=== PATIENT | female | born 1985 | race American Indian/Alaskan Native ===

== ENCOUNTER 2018-05-22 11:58 | Emergency (ER) | payer MEDICAID ==
--- NOTE | 2018-05-22 12:13 | Emergency Department Report ---
Chief Complaint: Vaginal Bleeding Stated Complaint: 6WKS PREG/BLEEDING Time Seen by Provider: 05/22/18 12:09 - HPI History of Present Illness: pt is currently 6 weeks pt is HIV positive is having vaginal spotting for 2 days - Exam Vital Signs: Vital Signs 05/22/18 12:07 Temperature 98 F Pulse Rate 87 Respiratory 18 Rate Blood Pressure 109/73 O2 Sat by Pulse 100 Oximetry MSE screening note: Focused history and physical exam performed. Due to findings the following was ordered: labs, UA, US ED Disposition for MSE Condition: Stable
[2018-05-22 12:24] LABS: Hematocrit 34.4 % (30.3-42.9); Hemoglobin 11.2 gm/dl (10.1-14.3); Mean Corpuscular HGB Conc 33 % (30-34); Mean Corpuscular Volume 83 fl (79-97); Platelet Count 185 K/mm3 (140-440); Red Blood Count 4.15 M/mm3 (3.65-5.03); Red Cell Distribution Width 13.4 % (13.2-15.2)
[2018-05-22 13:03] LABS: Bacteria,Urine 1+ /HPF (Negative); Bilirubin,Urine NEG (Negative); Blood,Urine LG (Negative); Color,Urine Yellow (Yellow); Mucus,Urine FEW /HPF; Protein,Urine <15 mg/dL mg/dL (Negative)
--- NOTE | 2018-05-22 13:10 | Emergency Department Report ---
ED HPI - General Chief complaint: Vaginal Bleeding Stated complaint: 6WKS PREG/BLEEDING Time Seen by Provider: 05/22/18 12:09 Source: patient Mode of arrival: Ambulatory Limitations: No Limitations - History of Present Illness Initial comments: This is a 32-year-old female nontoxic, well nourished in appearance, no acute signs of distress presents to the ED with c/o of vaginal bleeding x2 days. Patient stated she is currently about 6-7 weeks . Patient stated that she seen any MANAGER TRADE last week for vaginal bleeding and had a ultrasound with no heartbeat with hCG quantitative test of 3500. She stated that vaginal bleeding has not stopped. Patient denies any vaginal discharge or foul odor. Patient denies any nausea, vomiting, chest pain, shortness of breathe, fever, chills, headache, stiff neck, numbness, tingling. Patient denies any urinary symptoms. Patient denies any pelvic or pleural pain. Patient denies any allergies or PMH. MD Complaint: vaginal bleeding -: days(s) (2) Radiation: none Severity scale (0 -10): 0 Consistency: constant Improves with: none Worsens with: none Associated symptoms: vaginal bleeding. denies: nausea/vomiting, vaginal discharge, abdominal pain, dysuria, headache, vision changes, malaise, dysparuenia, rash, seizure, shortness of breath, syncope, weakness Vaginal bleeding: light :: Yes Pre- care: followed by OB - Related Data Allergies Allergy/AdvReac Type Severity Reaction Status Date / Time No Known Allergies Allergy Unverified 05/22/18 12:00 ED Review of Systems ROS: Stated complaint: 6WKS PREG/BLEEDING Other details as noted in HPI Constitutional: denies: chills, fever Eyes: denies: eye pain, eye discharge, vision change ENT: denies: ear pain, throat pain Respiratory: denies: cough, shortness of breath, wheezing Cardiovascular: denies: chest pain, palpitations Endocrine: no symptoms reported Gastrointestinal: denies: abdominal pain, nausea, diarrhea Genitourinary: abnormal menses. denies: urgency, dysuria, discharge Musculoskeletal: denies: back pain, joint swelling, arthralgia Skin: denies: rash, lesions Neurological: denies: headache, weakness, paresthesias Psychiatric: denies: anxiety, depression Hematological/Lymphatic: denies: easy bleeding, easy bruising ED Past Medical Hx - Past Medical History Previous Medical History?: Yes Hx HIV: Yes (non detectable last visit 11/2017) - Surgical History Additional Surgical History: 2 c-sections - Social History Smoking Status: Never Smoker Substance Use Type: None ED Physical Exam - General Limitations: No Limitations General appearance: alert, in no apparent distress - Head Head exam: Present: atraumatic, normocephalic - Eye Eye exam: Present: normal appearance - ENT ENT exam: Present: mucous membranes moist - Neck Neck exam: Present: normal inspection, full ROM. Absent: tenderness, meningismus, lymphadenopathy - Respiratory Respiratory exam: Present: normal lung sounds bilaterally. Absent: respiratory distress, wheezes, rales, rhonchi, stridor, chest wall tenderness, accessory muscle use, decreased breath sounds, prolonged expiratory - Cardiovascular Cardiovascular Exam: Present: regular rate, normal rhythm, normal heart sounds. Absent: bradycardia, tachycardia, irregular rhythm, systolic murmur, diastolic murmur, rubs, gallop - GI/Abdominal GI/Abdominal exam: Present: soft, normal bowel sounds. Absent: distended, tenderness, guarding, rebound, rigid, diminished bowel sounds - Extremities Exam Extremities exam: Present: normal inspection, full ROM - Back Exam Back exam: Present: normal inspection, full ROM - Neurological Exam Neurological exam: Present: alert, oriented X3 - Psychiatric Psychiatric exam: Present: normal affect, normal mood - Skin Skin exam: Present: warm, dry, intact, normal color. Absent: rash ED Course Vital Signs 05/22/18 12:07 Temperature 98 F Pulse Rate 87 Respiratory 18 Rate Blood Pressure 109/73 O2 Sat by Pulse 100 Oximetry - Reevaluation(s) Reevaluation #1: 05/22/18 13:09 Patient is speaking in full sentences with no signs of distress noted. ED Medical Decision Making - Lab Data Result diagrams: 05/22/18 12:13 - Medical Decision Making This is a 32-year-old female presents with spontaneous miscarriage. Patient is stable and was examined by me. Normal abdominal exam. US OB obtained and dictated by the radiologist. Ua obtained. Quantative serum test obtained and seems to significantly decreased from 3500 that was last week by her MANAGER TRADE. Patient did give me her lab results. Patient does not have pelvic pain. I am not currently concerned about ectopic . Patient notified of the US report with no questions noted by the patient. Patient was instructed f/u with MANAGER TRADE in 2 days to follow up with a MANAGER TRADE or to emergency room for a reevaluation of serum quantative test with possible ultrasound. RH factor positive. Labs within normal limits. Patient was given strict precautions and education on ectopic . At time of discharge, the patient does not seem toxic or ill in appearance. No acute signs of distress noted. Patient agrees to discharge treatment plan of care. No further questions noted by the patient. Critical care attestation.: If time is entered above; I have spent that time in minutes in the direct care of this critically ill patient, excluding procedure time. ED Disposition Clinical Impression: Spontaneous miscarriage Disposition: DC- TO HOME OR SELFCARE Is pt being admited?: No Does the pt Need Aspirin: No Condition: Stable Instructions: Spontaneous Miscarriage (ED) Additional Instructions: Follow-up with a MANAGER TRADE in 2 days or if symptoms worsen and continue return to emergency room as soon as possible. Referrals: UMBERTO BELLAMYAKUTAN MD SAMAN [Primary Care Provider] - 3-5 Days MAGDALENO TO MD [Staff Physician] - 05/24/18 [facility] [Provider Group] - 05/24/18 Forms: Work/School Release Form(ED)
[2018-05-22 13:12] LABS: Anisocytosis Few; Ovalocytes Rare; Platelet Estimate Consistent w Auto; Poikilocytosis Few; Total Cells Counted 100
--- NOTE | 2018-05-22 15:07 | Ultrasound Report ---
Pelvic and transvaginal sonography: History: , bleeding. Findings: Uterus measures 9.2 x 4 x 5.6 cm. Endometrial thickness 11.2 cm. No mass within the uterus. No fluid collection within the uterus. No intrauterine gestation. Right ovary 2.3 x 1.6 x 1.9 cm. No mass. Left ovary 2.3 x 1.4 x 2.1 cm. No mass. Impression: No evidence of intrauterine gestation. Actually team was informed of the findings at 3:06 PM on 05/22/18. Mayra.
[2018-05-22 16:59] VITALS: BP 110/71
== END 2018-05-22 16:58 | disposition home or self-care (01) ==
LOC: ED 11:58
DX: O03.9 Complete or unspecified spontaneous abortion without complication (principal); Z3A.01 Less than 8 weeks gestation of pregnancy; Z21 Asymptomatic human immunodeficiency virus [HIV] infection status
CPT/HCPCS: 36415; 76801; 76817; 81001; 84702; 85007; 85025; 86900; 86901; 99284